=== PATIENT | male | born 1970 | race Caucasian/White ===

== ENCOUNTER 2022-05-07 11:13 | Emergency (ER) | payer OTHER, SELFPAY ==
--- NOTE | ~2022-05-07 | XR_ITS ---
XR chest 2V DATE: 05/07/2022 11:44 INDICATION: Cough, fever. Post Covid. TECHNIQUE: 2 views COMPARISON: None FINDINGS: Normal heart size. No hilar or mediastinal enlargement. No pulmonary infiltrate or consolid ation, pleural effusion or pulmonary vascular congestion or pneumothorax. There is mild levoscoliosis. IMPRESSION: No active cardiopulmonary disease Reviewed, dictated and finalized at location A.
[2022-05-07 11:24] VITALS: BP 131/82; PULSE 76; RESP 24; TEMP 36.5; O2SAT 99
--- NOTE | 2022-05-07 11:36 | ED.GENADULT ---
HPI - General Adult General Chief complaint: Upper Respiratory Infection Stated complaint: Cough History of Present Illness HPI narrative: Patient is a 52-year-old male who presents to the [facility] via POV for evaluation of a cough that has been present for 6 days. Additionally, he reports runny nose and chest pain with coughing. He tested positive for COVID on Sunday after taking a home test. He also had fever with a T-max of 101.0 that resolved 3 days ago. Tylenol and Advil controlled fever. Denies taking OTC cough medications. Denies history of lung disease. Patient is not vaccinated against COVID or influenza. Related Data Allergies Allergy/AdvReac Type Severity Reaction Status Date / Time No Known Allergies Allergy Verified 05/07/22 11:27 Review of Systems Review of Systems: Denies history of COPD, bronchitis, asthma, and pneumonia. Denies current/past tobacco use. Pertinent negatives: , sweats, chills, change in appetite, fatigue, skin color changes, headache, nasal congestion, dizziness, lymphadenopathy, sinus problems, ear pain/drainage, chest tightness, chest heaviness, heart murmurs, heart palpitations, shortness of breath, wheezing, cyanosis, hemoptysis, hoarseness, orthopnea, pleuritic pain, nausea, vomiting, diarrhea, and myalgias. PMFSH Social History Social History Smoking status: Never smoker Second hand tobacco smoke exposure: No Alcohol intake: current Drinks per week: 10 Substance use: never Substance use type: does not use Comments I have reviewed and agree with the patient's past medical, surgical, social, and family hx as documented by the RN. There is no relevant family history pertinent to the presenting complaint. Exam Narrative: GENERAL: Well-appearing, well-nourished, and in no acute distress. HEAD: Normocephalic, atraumatic. No sinus tenderness or facial swelling appreciated. EYES: PERRLA and EOMI. No evidence of erythema, swelling, or drainage. ENT: Bilateral external ears and ear canals normal. Bilateral TMs are normal.No TM perforation. Nares clear, no rhinorrhea or epistaxis. Bilateral turbinates without erythema/ swelling. Mucous membranes moist and pink. Uvula is midline without erythema and swelling. No evidence of petechial rash, cobblestoning, lesions, ulcers, erythema, swelling, exudates, peritonsillar abscess, tenting, or drooling. Breath odor and voice normal. NECK: Supple. No Lymphadenopathy or nuchal rigidity appreciated. CHEST: Bilateral lung galicia are clear to auscultation. No respiratory distress. No evidence of pleuritic cp upon examination. Moderate wet cough appreciated on examination. HEART: Regular rate and rhythm. No murmur, gallop, or rub heard. EXTREMITIES: Normal range of motion. No edema. SKIN: Warm, dry, no rash. NEURO: No focal deficits. Alert and oriented x3. Course Course Level of Care: Express Care Visit Vital Signs Vital signs: Vital Signs Temperature 97.7 F 05/07/22 11:24 Pulse Rate 76 05/07/22 11:24 Respiratory Rate 24 H 05/07/22 11:24 Blood Pressure 131/82 05/07/22 11:24 Pulse Oximetry 99 05/07/22 11:24 Oxygen Delivery Room Air 05/07/22 11:24 Temperature 97.7 F 05/07/22 11:24 Pulse Rate 76 05/07/22 11:24 Respiratory Rate 24 H 05/07/22 11:24 Blood Pressure 131/82 05/07/22 11:24 Pulse Oximetry 99 05/07/22 11:24 Oxygen Delivery Room Air 05/07/22 11:24 Medical Decision Making Differential Diagnosis Differential Diagnosis: Allergic rhinitis, ABRS, acute viral sinusitis, strep pharyngitis, nasopharyngitis, bronchitis, pneumonia, AOM, otitis externa, viral URI, influenza, covid-19 Medical Records Medical records narrative: Reviewed Vital Signs Vital Signs: Vital Signs Temperature 97.7 F 05/07/22 11:24 Pulse Rate 76 05/07/22 11:24 Respiratory Rate 24 H 05/07/22 11:24 Blood Pressure 131/82 05/07/22
== END 2022-05-07 12:00 | disposition home or self-care (01) ==
PROVIDERS: Emergency Provider Nurse Practitioner Family; PCP Internal Medicine
DX: U07.1 COVID-19 (principal)
CPT/HCPCS: 71046; 99213; G0463

== ENCOUNTER → 2022-09-29 11:43 | Outpatient (CLI) | payer OTHER, SELFPAY ==
--- NOTE | ~2022-09-29 | XR_ITS ---
XR shoulder RT min 2V 09/29/2022 12:05 Indication: Right shoulder pain Procedure: 4 views right shoulder Comparison: No prior studies for comparison. Findings: There is glenohumeral joint osteoarthritis. No fracture or traumatic malalignment. There is calcified granuloma in the right upper thorax. No significant soft tissue abnormality. No foreign reji dies. Impression: 1: Mild glenohumeral joint osteoarthritis Reviewed, dictated and finalized at location A. RMATICS APPLICATION ANALYST Impression: 1: Mild glenohumeral joint osteoarthritis
== END ==
PROVIDERS: PCP Internal Medicine; Visit Provider Internal Medicine
DX: G89.29 Other chronic pain (principal); M25.511 Pain in right shoulder
CPT/HCPCS: 73030

== ENCOUNTER 2022-12-20 16:40 | Outpatient (CLI) | payer OTHER, SELFPAY ==
--- NOTE | ~2022-12-20 | MR_ITS ---
EXAMINATION: MR shoulder RT wo con DATE: 12/20/2022 17:44 INDICATION: Chronic right shoulder pain TECHNIQUE: Magnetic resonance imaging (MRI) of the right shoulder was performed without intravenous c ontrast. Sequences included axial PD-weighted FS FSE, coronal oblique PD-weighted FS FSE, coronal obl ique T2-weighted FS FSE, sagittal PD-weighted FS FSE, and sagittal T1-weighted SE. COMPARISON: None. FINDINGS: Coracoacromial arch: The acromion undersurface is curved in morphology (type II). The coracoacromial ligament is normal. M ild acromioclavicular osteoarthritis. Rotator cuff: Mild to moderate supraspinatus and infraspinatus tendinopathy most prominent at the conjoined portion of the tendons but without tear. Mild subscapularis tendinopathy with small split tear at the cephal ad third of the tendon situated between the superficial portion of the tendon contiguous with the int act transverse humeral ligament and the deeper portion of the tendon which remains normally attached to the lesser tuberosity footplate. A portion of the long head biceps tendon is subluxed across the m edial rim of the intertubercular groove and minimally into the tear defect which extends up to 5 mm m edially from the rim of the intertubercular groove. The teres minor tendon is normal. Normal rotator cuff muscle bulk and signal. Biceps tendon, glenoid labrum and glenohumeral cartilage: Long head of the biceps tendon is normal. Diffuse tear involving essentially entire glenoid labrum wi th small marginal osteophytes along the rim of the glenoid. There is deep chondral ulceration and fis suring with underlying edema-like and cystlike changes along the posterior and inferior size of the g lenoid. Additional partial thickness cartilage loss with small region of deep chondral ulceration and fissuring without degenerative subchondral changes along the medial, inferomedial and anterosuperior medial aspects of the humeral head. Additional small to moderate-sized marginal osteophytes about th e humeral head. Fluid: Minimal glenohumeral joint effusion with small amount of fluid and mild synovitis at the deep subscap ular recess. There is additional small amount of fluid and mild synovitis consistent with mild tenosy novitis of the long head biceps tendon sheath. No loose osteochondral bodies. Mild increased fluid si gnal in the subacromial/subdeltoid bursa consistent with minimal bursitis. Bones: Bone alignment is normal. No fracture or pathologic marrow replacing process. IMPRESSION: 1. Mild subscapularis tendinopathy with small split tear of the cephalad third of the tendon between the superficial fibers contiguous the intact transverse humeral ligament and the deeper fibers attach ed without tear to the lesser tuberosity. 2. Mild to moderate supraspinatus and infraspinatus tendinopathy without tear. 3. Mild to moderate glenohumeral osteoarthritis with high-grade chondromalacia along the inferior pos terior inferior glenoid and with diffuse labral tear. 4. Mild bicipital tenosynovitis and minimal subacromial/subdeltoid bursitis. 5. Mild acromioclavicular osteoarthritis. Reviewed, dictated and finalized at location D. ENT ATTENDANT IMPRESSION: 1. Mild subscapularis tendinopathy with small split tear of the cephalad third of the tendon between the superficial fibers contiguous the intact transverse h umeral ligament and the deeper fibers attached without tear to the lesser tuber osity. 2. Mild to moderate supraspinatus and infraspinatus tendinopathy without tear. 3. Mild to moderate glenohumeral osteoarthritis with high-grade chondromalacia along the inferior posterior inferior glenoid and with diffuse labral tear. 4. Mild bicipital tenosynovitis and minimal subacromial/subdeltoid bursitis
== END 2022-12-20 16:41 | disposition home or self-care (01) ==
PROVIDERS: PCP Internal Medicine; Visit Provider Nurse Practitioner Family
DX: M67.813 Other specified disorders of tendon, right shoulder (principal); M19.011 Primary osteoarthritis, right shoulder; M94.211 Chondromalacia, right shoulder; M65.811 Other synovitis and tenosynovitis, right shoulder
CPT/HCPCS: 73221

== ENCOUNTER 2023-03-02 13:14 | Outpatient (CLI) | payer OTHER, SELFPAY ==
--- NOTE | ~2023-03-02 | XR_ITS ---
EXAMINATION: XR lg joint inject/asp w image DATE: 03/02/2023 14:03 INDICATION: Right shoulder osteoarthritis TECHNIQUE: A time-out was performed to verify the patient's name, date of , and procedure to b e performed. The procedure including the risks, benefits, and alternatives was discussed with the pat ient. Risks discussed included bleeding and infection. The patient understood the risks and agreed to proceed. The skin overlying the rotator cuff interval of the right glenohumeral joint was prepped a nd draped in usual sterile fashion. Anesthetic was administered with 1% lidocaine subcutaneously. A 22 G needle was advanced under fluoroscopic guidance into the joint. Injection of 1 mL of Omnipaque 240 confirmed intra-articular position of the needle. Subsequently, injectate consisting of 4 mL a 3:1 mixture of 1% lidocaine: 80 mg/mL Depo-Medrol for a total dosage of 80 mg Depo-Medrol was instill ed. Washout of contrast was seen confirming intra-articular administration. The needle was removed an d the entry site was cleaned and dressed. There were no immediate complications. Fluoroscopy exposur e time was 0.1 minutes. The total number of images was 2. FINDINGS: Real-time fluoroscopy demonstrates the needle in the right glenohumeral joint. Patient's pa in prior to procedure:4/10. Patient's pain following the procedure: 0/10. IMPRESSION: 1. Successful right glenohumeral injection of local anesthetic and steroid with decrease in the patie nt's presenting pain. Reviewed, dictated and finalized at location A. IMPRESSION: 1. Successful right glenohumeral injection of local anesthetic and steroid with decrease in the patient's presenting pain.
== END 2023-03-02 13:15 | disposition home or self-care (01) ==
LOC: ANHIMG 13:18
PROVIDERS: PCP Internal Medicine; Visit Provider Orthopaedic Surgery
DX: M19.011 Primary osteoarthritis, right shoulder (principal)
CPT/HCPCS: 20610; 77002; J1040; Q9966

== ENCOUNTER 2024-08-15 14:37 | Outpatient (CLI) | payer OTHER, SELFPAY ==
--- NOTE | ~2024-08-15 | MR_ITS ---
EXAMINATION: MR IAC wo/w con DATE: 08/15/2024 15:37 INDICATION: Asymmetrical hearing loss. TECHNIQUE: Magnetic resonance imaging (MRI) of the brain, brainstem, and internal auditory canals was performed without and with 18 mL MultiHance intravenous contrast. COMPARISON: None. FINDINGS: There are scattered areas of nonspecific increased T2-weighted signal intensity in the cere bral white matter, which is within normal limits for the patient's age. There is no intracranial hemo rrhage, acute infarction, or abnormal intracranial mass lesion. The ventricles are normal in size. Th ere is mucosal thickening in the paranasal sinuses. The orbits are normal. The mastoid air cells are normal. The internal auditory canals, inner ears, and tympanic cavities are normal. IMPRESSION: 1. Normal aging brain. Reviewed, dictated and finalized at location A. IMPRESSION: 1. Normal aging brain.
== END 2024-08-15 14:38 | disposition home or self-care (01) ==
PROVIDERS: PCP Nurse Practitioner Family; Visit Provider Nurse Practitioner Family
DX: H90.5 Unspecified sensorineural hearing loss (principal)
CPT/HCPCS: 70553; A9577